=== PATIENT | female | born 1945 | race Caucasian/White ===

== ENCOUNTER → 2016-09-30 | Outpatient (CLI) | payer OTHER ==
[2016-09-30 13:37] LABS: BLOOD UREA NITROGEN 15 mg/dl (7-18); BUN/CREATININE RATIO 12.6 (10-20)
== END | disposition home or self-care (01) ==
LOC: C.LABMFLN 11:01
PROVIDERS: ATTEND Internal Medicine Cardiovascular Disease
DX: N18.3 Chronic kidney disease, stage 3 (moderate) (principal)

== ENCOUNTER → 2016-10-01 | Outpatient (CLI) | payer OTHER ==
[~2016-10-01] MED LIST: GADAVIST IV PRN
--- NOTE | 2016-10-01 12:22 | DIAGNOSTIC IMAGING REPORT ---
MRA OF THE CHEST WITH AND WITHOUT CONTRAST CLINICAL HISTORY: Dilated ascending aorta. COMPARISON STUDY: None available at time of interpretation. TECHNIQUE: Unenhanced and contrast-enhanced MRA of the chest was performed pre and postcontrast demonstration. Injection of 9 cc of Gadavist IV was uneventful. FINDINGS: The heart is mildly enlarged. The aortic root is suboptimally assessed on this exam due to motion artifact but the caliber of the aorta at the level the sinuses of V[place] is likely normal, measuring approximately 3.6 cm. There is slight dilatation of the ascending aorta at the level the main pulmonary artery, measuring 4 cm. The caliber of the aortic arch and descending thoracic aorta is normal. There is no thoracic aortic dissection. No pericardial effusion. No enlarged thoracic lymph nodes are identified by MRI. Lungs are suboptimally assessed by MRI. Note is made of massive splenomegaly. The spleen measures at least 20 cm in craniocaudal extent. There is a 1.4 cm cystic splenic lesion which is likely benign. Splenic vein is dilated. IMPRESSION: 1. Mild dilatation of the ascending aorta at the level the main pulmonary artery, measuring 4 cm. Aortic root suboptimally assessed due to motion artifact but caliber of the aorta at the sinuses of V[place]alva is likely normal. 2. Mild cardiomegaly. 3. Massive splenomegaly with dilated splenic vein. Electronically signed by: Joel Troncoso M.D. 10/01/2016 12:20 PM Dictated Date/Time: 10/01/2016 12:01 PM
== END | disposition home or self-care (01) ==
LOC: C.MRI 10:21
PROVIDERS: ATTEND Internal Medicine Cardiovascular Disease
DX: I51.7 Cardiomegaly (principal); R16.1 Splenomegaly, not elsewhere classified; I35.9 Nonrheumatic aortic valve disorder, unspecified

== ENCOUNTER → 2016-11-09 | Outpatient (CLI) | payer OTHER ==
[2016-11-09 13:58] LABS: ALT/SGPT 26 U/L (12-78); AST/SGOT 27 U/L (15-37); BLOOD UREA NITROGEN 27 mg/dl (7-18); BUN/CREATININE RATIO 19.6 (10-20); CALCIUM 8.7 mg/dl (8.5-10.1); CARBON DIOXIDE 31 mmol/L (21-32); CHLORIDE 106 mmol/L (98-107); GLUCOSE 88 mg/dl (70-99); POTASSIUM 4.6 mmol/L (3.5-5.1); SODIUM 142 mmol/L (136-145)
[2016-11-09 14:01] LABS: CHOLESTEROL 196 mg/dl (0-200); CHOLESTEROL/HDL RATIO 4.3; HDL CHOLESTEROL 46 mg/dl; LDL CHOLESTEROL CALCULATED 118 mg/dl; TRIGLYCERIDES 161 mg/dl (0-150); VERY LOW DENSITY LIPOPROT CALC 32 mg/dl
== END | disposition home or self-care (01) ==
LOC: C.LABMFLN 09:42
PROVIDERS: ATTEND Internal Medicine Cardiovascular Disease
DX: I35.0 Nonrheumatic aortic (valve) stenosis (principal); I77.89 Other specified disorders of arteries and arterioles; I10 Essential (primary) hypertension; E78.5 Hyperlipidemia, unspecified